=== PATIENT | female | born 1985 | race Caucasian/White ===

== ENCOUNTER → 2021-11-03 13:37 | Outpatient (BNVA) | payer OTHER, SELFPAY | PROVIDERS: Family Provider Family Medicine; PCP Family Medicine; Visit Provider Family Medicine | DX: Z00.00 Encounter for general adult medical examination without abnormal findings (principal); R53.83 Other fatigue; R63.5 Abnormal weight gain | CPT/HCPCS: 82607; 84443; 85025; 86140 ==

== ENCOUNTER 2023-01-27 13:00 | Outpatient (CLI) | payer OTHER, SELFPAY ==
[2023-02-02 11:04] LABS: Quantiferon Mitogen >10.00 IU/mL; Quantiferon Nil 0.14 IU/mL; Quantiferon Plus TB1 0.02 IU/mL; Quantiferon Plus TB2 0.03 IU/mL; Quantiferon TB Gold NEGATIVE (NEGATIVE)
== END 2023-01-27 13:01 | disposition home or self-care (01) ==
PROVIDERS: PCP Family Medicine; Visit Provider Podiatrist Foot & Ankle Surgery
DX: Z01.812 Encounter for preprocedural laboratory examination (principal)
CPT/HCPCS: 36415; 86480

== ENCOUNTER → 2023-05-24 17:56 | Outpatient (BNVA) | payer OTHER, SELFPAY | PROVIDERS: PCP Family Medicine; Visit Provider Family Medicine | DX: J02.9 Acute pharyngitis, unspecified (principal) | CPT/HCPCS: 87880 ==

== ENCOUNTER → 2023-06-09 15:54 | Outpatient (BNVA) | payer OTHER, SELFPAY | PROVIDERS: PCP Family Medicine; Visit Provider Obstetrics & Gynecology | DX: Z01.419 Encounter for gynecological examination (general) (routine) without abnormal findings (principal); Z00.00 Encounter for general adult medical examination without abnormal findings | CPT/HCPCS: 84443; 85025; 87624 ==

== ENCOUNTER → 2023-07-07 07:52 | Outpatient (BNVA) | payer OTHER, SELFPAY | PROVIDERS: PCP Family Medicine; Visit Provider Obstetrics & Gynecology | DX: N93.9 Abnormal uterine and vaginal bleeding, unspecified (principal) | CPT/HCPCS: 76830 ==

== ENCOUNTER → 2024-02-04 12:28 | Outpatient (BNVA) | payer OTHER, SELFPAY | PROVIDERS: PCP Family Medicine; Visit Provider Nurse Practitioner | DX: J02.9 Acute pharyngitis, unspecified (principal) | CPT/HCPCS: 87880 ==

== ENCOUNTER 2024-02-14 16:34 | Outpatient (CLI) | payer OTHER, SELFPAY | END 2024-02-14 16:35 | disposition home or self-care (01) | LOC: LAB 16:35 | PROVIDERS: PCP Family Medicine; Visit Provider Podiatrist Foot & Ankle Surgery | DX: Z01.818 Encounter for other preprocedural examination (principal) | CPT/HCPCS: 36415; 86480 ==